=== PATIENT | female | born 1955 | race Two or more races ===

== ENCOUNTER → 2017-03-07 | Outpatient (CLI) | payer BC, OTHER ==
--- NOTE | 2017-03-07 13:24 | REP ---
THYROID ULTRASOUND: 03/07/2017. Clinical history: Nontoxic single thyroid nodule. Comparison: No prior pertinent studies. Findings: Sonographic evaluation of the thyroid show the right lobe 3.6 x 1.7 x 1.8 cm. The left lobe is 3.8 x 1 x 1.6 cm. The isthmus has a thickness of 2.2 mm. Thyroid lobes are generally homogeneous on the left and with two hypoechoic nodules in the right lobe, one laterally 8 x 7 x 5 mm and the other inferiorly 7 x 6 x 4 mm. No abnormal calcifications. I see no cyst or no contour abnormality or lobulations noted. No adjacent fluid collections or adenopathy. Impression: 1. Two small solid nodules of the right lobe, 8 x 7 and 7 x 6 mm, in the inferior aspect of the thyroid lobe with both lobes otherwise homogeneous and unremarkable. No thyromegaly. No cystic mass. Signed by Juan Rogers MD 03/07/2017 08:14 P
--- NOTE | 2017-03-08 14:36 | REP ---
Clinical: Right lower quadrant palpable mass. Technique: Real time starkey scale ultrasound examination using linear high frequency and curved array transducer. Findings: Directed ultrasound examination of the right lower quadrant overlying the area of "palpable mass" identifies normal subcutaneous soft tissue without fluid collection, or mass lesion. No obvious abnormalities identified. Impression: Normal directed ultrasound examination of the right lower quadrant without obvious mass lesion, fluid collection or abnormality. Signed by Wale Madsen MD 03/08/2017 02:51 A
== END ==
LOC: M RAD 10:14
PROVIDERS: ATTEND Internal Medicine
DX: E04.1 Nontoxic single thyroid nodule (principal); R19.00 Intra-abdominal and pelvic swelling, mass and lump, unspecified site

== ENCOUNTER → 2017-12-31 | Outpatient (CLI) | payer BC, OTHER ==
[2017-12-31 15:06] LABS: D-DIMER QUANT < 270.0 ng/ml (<500)
== END ==
LOC: M LAB 14:30
DX: R06.02 Shortness of breath (principal); D68.2 Hereditary deficiency of other clotting factors
CPT/HCPCS: 36415

== ENCOUNTER → 2018-01-09 | Outpatient (CLI) | payer BC, OTHER | LOC: M RAD 15:22 | DX: R91.8 Other nonspecific abnormal finding of lung field (principal); I70.0 Atherosclerosis of aorta; I25.10 Atherosclerotic heart disease of native coronary artery without angina pectoris | CPT/HCPCS: 71250 ==

== ENCOUNTER 2018-01-25 09:35 | Emergency (ER) | payer BC, OTHER ==
[2018-01-25] MEDS: ASPIRIN 81 MG CHEW TABLET PO (10:14)
[2018-01-25 10:15] LABS: BASO % 0.5 % (0.0-1.0); EOS # 0.1 10^3/uL (0.0-0.50); EOS % 1.8 % (0.0-3.0); HEMATOCRIT 40.2 % (36.0-47.0); HEMOGLOBIN 13.5 g/dl (12.0-15.5); IMMATURE GRANULOCYTE % 0.2 % (0-3.0); LYMPH # 1.2 10^3/uL (1.5-4.5); LYMPH % 18.6 % (24.0-44.0); MEAN CORPUSCULAR HEMOGLOBIN 31.2 pg (27.0-33.0); MEAN CORPUSCULAR HGB CONC 33.6 g/dl (32.0-36.5); MEAN CORPUSCULAR VOLUME 92.8 fl (80.0-96.0); MONO # 0.6 10^3/uL (0.0-0.8); MONO % 8.6 % (0.0-5.0); NEUTROPHILS # 4.6 10^3/uL (1.8-7.7); NEUTROPHILS % 70.3 % (36.0-66.0); PLATELET COUNT, AUTOMATED 228 10^3/uL (150-450); RED BLOOD COUNT 4.33 10^6/uL (4.00-5.40); RED CELL DISTRIBUTION WIDTH 12.1 % (11.5-14.5); WHITE BLOOD COUNT 6.5 10^3/uL (4.0-10.0)
[2018-01-25] MEDS: NITROGLYCERIN 0.4 MG SUBL TABLET SL ×3 (10:15→10:30)
[2018-01-25 10:29] LABS: PROTHROMBIN TIME 12.2 SECONDS (12.1-14.4)
[2018-01-25 10:56] LABS: ALKALINE PHOSPHATASE 124 U/L (45-117); ALT/SGPT 48 U/L (12-78); ANION GAP 4 MEQ/L (8-16); AST/SGOT 24 U/L (7-37); BILIRUBIN,DIRECT 0.1 MG/DL (0.0-0.2); BILIRUBIN,TOTAL 0.6 MG/DL (0.2-1.0); BLOOD UREA NITROGEN 14 MG/DL (7-18); CARBON DIOXIDE LEVEL 29 MEQ/L (21-32); CHLORIDE LEVEL 105 MEQ/L (98-107); CPK CREATINE PHOSPHOKINASE 119 U/L (26-192); CREATININE FOR GFR 0.78 MG/DL (0.55-1.30); GLOMERULAR FILTRATION RATE > 60.0 (>45); GLUCOSE, FASTING 93 MG/DL (70-100); LIPASE 163 U/L (73-393); MB/CK RELATIVE INDEX 2.18 (< OR =4); NT-PRO BNP 33 PG/ML (<125); POTASSIUM SERUM 4.3 MEQ/L (3.5-5.1); SODIUM LEVEL 138 MEQ/L (136-145); TOTAL PROTEIN 6.5 GM/DL (6.4-8.2); TROPONIN I < 0.02 NG/ML (< 0.10)
[2018-01-25] MEDS ORDERED: ISOVUE-370 76% 100ML VIAL (Q9967) As Ordered (11:45)
[2018-01-25 13:03] LABS: CPK CREATINE PHOSPHOKINASE 128 U/L (26-192); MB/CK RELATIVE INDEX 1.56 (< OR =4); TROPONIN I < 0.02 NG/ML (< 0.10)
== END 2018-01-25 13:52 | disposition home or self-care (01) ==
LOC: M ED 09:35
DX: R07.9 Chest pain, unspecified (principal); I10 Essential (primary) hypertension; E78.9 Disorder of lipoprotein metabolism, unspecified; R42 Dizziness and giddiness; D68.51 Activated protein C resistance; Z88.8 Allergy status to other drugs, medicaments and biological substances; Z82.49 Family history of ischemic heart disease and other diseases of the circulatory system; Z79.899 Other long term (current) drug therapy; Z79.51 Long term (current) use of inhaled steroids
CPT/HCPCS: Q9967

== ENCOUNTER → 2018-02-07 | Outpatient (REF) | payer OTHER ==
[2018-02-07 11:37] LABS: ALBUMIN 4.2 GM/DL (3.2-5.2); ALKALINE PHOSPHATASE 115 U/L (45-117); ALT/SGPT 50 U/L (12-78); ANION GAP 7 MEQ/L (8-16); AST/SGOT 25 U/L (7-37); BILIRUBIN,TOTAL 0.6 MG/DL (0.2-1.0); BLOOD UREA NITROGEN 13 MG/DL (7-18); CALCIUM LEVEL 8.8 MG/DL (8.8-10.2); CARBON DIOXIDE LEVEL 28 MEQ/L (21-32); CHLORIDE LEVEL 106 MEQ/L (98-107); CHOLESTEROL LEVEL 319 MG/DL (<200); CHOLESTEROL RISK RATIO 5.229 (<5); CREATININE FOR GFR 0.86 MG/DL (0.55-1.30); GLOMERULAR FILTRATION RATE > 60.0 (>45); GLUCOSE, FASTING 106 MG/DL (70-100); HDL CHOLESTEROL 61 MG/DL (>40); LDL CHOLESTEROL 227 MG/DL (<100); NON-HDL-C 258 MG/DL; SODIUM LEVEL 141 MEQ/L (136-145); TRIGLYCERIDES LEVEL 154 MG/DL (<150)
== END ==
LOC: M SFHCCLAY 08:16
DX: I10 Essential (primary) hypertension (principal); E78.2 Mixed hyperlipidemia

== ENCOUNTER → 2018-04-25 | Outpatient (REF) | payer OTHER ==
[~2018-04-25] MED LIST: ASPI81TA85 PO; LISI10TA4; PROAAER10; SYMB80INH INH; VENL75CA47
== END ==
LOC: M SFHCCLAY 16:06
PROVIDERS: ATTEND Nurse Practitioner Family
DX: N89.8 Other specified noninflammatory disorders of vagina (principal)

== ENCOUNTER → 2018-07-24 | Outpatient (CLI) | payer BC, OTHER ==
--- NOTE | 2018-07-25 01:09 | REP ---
Clinical: Trauma. Technique: AP, lateral, bilateral oblique and sunrise views right knee . Findings: Mild generalized age-related changes are appreciated. The osseous structures and joint spaces are intact and there is no evidence for acute fracture or dislocation. No joint effusion is appreciated. Surrounding soft tissues are unremarkable. No subcutaneous emphysema or radiodense foreign body. Impression: Essentially age-appropriate right knee examination. No acute fracture or dislocation. Electronically Signed by Wale Madsen MD 07/25/2018 01:01 A
== END ==
LOC: M WUC 10:56
PROVIDERS: ATTEND Physician Assistant
DX: M25.561 Pain in right knee (principal)

== ENCOUNTER → 2018-07-24 | Outpatient (REF) | payer OTHER | LOC: M LAB REF 10:54 | PROVIDERS: ATTEND Physician Assistant | DX: J02.9 Acute pharyngitis, unspecified (principal) ==

== ENCOUNTER 2024-03-14 07:05 | Observation (INO) | payer BC, MEDICARE ==
[~2024-03-14] VITALS: Ht 170.2 cm; Wt 105.8 kg
[~2024-03-14 07:05] MED LIST changes: -ASPI81TA85 PO; +ASPI81TA86 PO; +LISI10TA22 PO; -LISI10TA4
[2024-03-14 07:45] LABS: BASO % 0.2 % (0.0-1.0); EOS # 0.1 10^3/uL (0.0-0.5); HEMATOCRIT 41.5 % (36.0-47.0); HEMOGLOBIN 13.7 g/dl (12.0-15.5); LYMPH # 0.3 10^3/uL (1.5-5.0); LYMPH % 3.7 % (24.0-44.0); MEAN CORPUSCULAR HEMOGLOBIN 30.6 pg (27.0-33.0); MEAN CORPUSCULAR VOLUME 92.8 fl (80.0-96.0); MONO # 0.3 10^3/uL (0.0-0.8); MONO % 3.7 % (2.0-8.0); NEUTROPHILS % 91.2 % (36.0-66.0); PLATELET COUNT, AUTOMATED 184 10^3/uL (150-450); RED BLOOD COUNT 4.47 10^6/uL (4.00-5.40); WHITE BLOOD COUNT 8.8 10^3/uL (4.0-10.0)
[2024-03-14] MEDS: ONDANSETRON 4MG 2ML VIAL IV ONE ×2 (07:50→10:30)
[2024-03-14] MEDS ORDERED: ISOVUE-370 76% 100ML VIAL As Ordered ONE (07:50)
[2024-03-14] MEDS: MORPHINE 4 MG/ML 1ML VIAL IV PRN (07:56)
[2024-03-14 08:08] LABS: CK-MB VALUE MASS < 1.0 NG/ML (<3.6); LIPASE 35 U/L (12-53)
[2024-03-14 08:10] LABS: CPK CREATINE PHOSPHOKINASE 81 U/L (34-145); MB/CK RELATIVE INDEX 1.23 (< OR =4)
[2024-03-14 08:11] LABS: ALBUMIN 3.8 G/DL (3.2-5.2); ALKALINE PHOSPHATASE 152 U/L (35-104); ALT/SGPT 136 U/L (7.0-40); AST/SGOT 143 U/L (<34); BILIRUBIN,DIRECT 0.2 MG/DL (<0.4); BILIRUBIN,TOTAL 0.8 MG/DL (0.3-1.2); BLOOD UREA NITROGEN 14 MG/DL (9-23); CALCIUM LEVEL 8.8 MG/DL (8.3-10.6); CARBON DIOXIDE LEVEL 27 MMOL/L (20-31); CHLORIDE LEVEL 107 MMOL/L (98-107); CREATININE FOR GFR 0.78 MG/DL (0.55-1.30); GLOMERULAR FILTRATION RATE > 60.0 (>45); GLUCOSE, FASTING 121 MG/DL (74-106); POTASSIUM SERUM 4.1 MMOL/L (3.5-5.1); SODIUM LEVEL 142 MMOL/L (136-145); TOTAL PROTEIN 6.3 G/DL (5.7-8.2)
[2024-03-14 08:31] LABS: INR 0.93; PROTHROMBIN TIME 12.7 SECONDS (12.5-14.5)
[2024-03-14 08:59] LABS: CK-MB VALUE MASS < 1.0 NG/ML (<3.6)
[2024-03-14 09:00] LABS: CPK CREATINE PHOSPHOKINASE 73 U/L (34-145); MB/CK RELATIVE INDEX 1.36 (< OR =4)
[2024-03-14 10:16] LABS: CK-MB VALUE MASS < 1.0 NG/ML (<3.6)
[2024-03-14 10:17] LABS: CPK CREATINE PHOSPHOKINASE 80 U/L (34-145); MB/CK RELATIVE INDEX 1.25 (< OR =4)
[2024-03-14] MEDS: METOCLOPRAMIDE INJ 10MG/2ML VIAL IV ONE (11:26)
[2024-03-14] MEDS ORDERED: ALBUTEROL 90 MCG/ACT 8GM HFA INHALER INH PRN (14:45)
[2024-03-14] MEDS ORDERED: DICYCLOMINE 10 MG CAP PO PRN (14:45)
[2024-03-14] MEDS: NS (Normal Saline) 0.9% 1,000 ML IV SCH (15:08)
[2024-03-14] MEDS: SCOPOLAMINE 1MG TRANSDERMAL PATCH TOP SCH (15:08)
[2024-03-14] MEDS ORDERED: ALBU8.5H INH (15:35)
[2024-03-14] MEDS ORDERED: METO200T15 PO (15:35)
[2024-03-14] MEDS ORDERED: BUDE10.7 INH (15:35)
[2024-03-14] MEDS ORDERED: AMLO1TAB24 PO (15:35)
[2024-03-14] MEDS ORDERED: MONT10TA97 PO (15:35)
[2024-03-14] MEDS ORDERED: LEXA1TAB2 PO (15:35)
[2024-03-14] MEDS ORDERED: ASPI81TA26 PO (15:35)
[2024-03-14] MEDS ORDERED: FAMO1TAB11 PO (15:37)
[2024-03-14] MEDS ORDERED: CALC600T27 PO (15:37)
[2024-03-14] MEDS ORDERED: PANT40TA29 PO (15:37)
[2024-03-14] MEDS ORDERED: ATOR80TA59 PO (15:37)
[2024-03-14 16:00] VITALS: BP 144/65; TEMP 97.5; O2SAT 94
[2024-03-14] MEDS ORDERED: GABA-1172 PO (16:10)
[2024-03-14] MEDS ORDERED: HOME MED LIST COMPLETE! XX SCH (16:10)
[2024-03-14] MEDS: PANTOPRAZOLE 20 MG TAB PO SCH (17:57)
[2024-03-14] MEDS: ACETAMINOPHEN 325 MG TAB PO PRN (17:57)
[2024-03-14 18:00] VITALS: BP 121/59; TEMP 97.8; O2SAT 94
[2024-03-14 19:52] VITALS: BP 121/58; TEMP 99.1; O2SAT 91
[2024-03-15 04:03] VITALS: BP 123/61; TEMP 98.6; O2SAT 94
[2024-03-15 06:46] LABS: HEMATOCRIT 35.4 % (36.0-47.0); MEAN CORPUSCULAR HGB CONC 32.8 g/dl (32.0-36.5); MEAN CORPUSCULAR VOLUME 94.7 fl (80.0-96.0); PLATELET COUNT, AUTOMATED 141 10^3/uL (150-450); RED BLOOD COUNT 3.74 10^6/uL (4.00-5.40); WHITE BLOOD COUNT 2.9 10^3/uL (4.0-10.0)
[2024-03-15 06:51] LABS: ALBUMIN 2.8 G/DL (3.2-5.2); ALKALINE PHOSPHATASE 117 U/L (35-104); ALT/SGPT 82 U/L (7.0-40); AST/SGOT 41 U/L (<34); BILIRUBIN,TOTAL 0.6 MG/DL (0.3-1.2); BLOOD UREA NITROGEN 13 MG/DL (9-23); CALCIUM LEVEL 8.1 MG/DL (8.3-10.6); CARBON DIOXIDE LEVEL 26 MMOL/L (20-31); CHLORIDE LEVEL 106 MMOL/L (98-107); CREATININE FOR GFR 0.78 MG/DL (0.55-1.30); GLOMERULAR FILTRATION RATE > 60.0 (>45); GLUCOSE, FASTING 101 MG/DL (74-106); MAGNESIUM LEVEL 1.7 MG/DL (1.8-2.4); POTASSIUM SERUM 3.5 MMOL/L (3.5-5.1); SODIUM LEVEL 140 MMOL/L (136-145); TOTAL PROTEIN 5.2 G/DL (5.7-8.2)
[2024-03-15 06:57] LABS: HEMOGLOBIN 11.6 g/dl (12.0-15.5)
[2024-03-15 08:00] VITALS: BP 124/59; TEMP 98.6; O2SAT 91
[2024-03-15] MEDS: ASPIRIN 81MG ENTERIC TABLET PO SCH (08:53)
[2024-03-15 08:54] VITALS: BP 124/59
[2024-03-15] MEDS: MAG SULF 1GM/100ML (MAG RUN) 1 GM in IV 1 EA IV ONE (08:54)
[2024-03-15] MEDS: ENOXAPARIN 40MG/0.4ML SYRINGE (J1650 PER 10MG) SC SCH (08:54)
[2024-03-15 12:00] VITALS: BP 145/70; TEMP 98.2; O2SAT 94
== END 2024-03-15 16:00 | disposition home or self-care (01) ==
LOC: M ED 07:05 → EDBD 07:05 → M ED INP 14:34 → M MS5PR 15:45
PROVIDERS: ADMIT Internal Medicine; ATTEND Internal Medicine
DX: A08.39 Other viral enteritis (principal); I71.00 Dissection of unspecified site of aorta; I10 Essential (primary) hypertension; E78.5 Hyperlipidemia, unspecified; M81.0 Age-related osteoporosis without current pathological fracture; G47.33 Obstructive sleep apnea (adult) (pediatric); K21.9 Gastro-esophageal reflux disease without esophagitis; J45.909 Unspecified asthma, uncomplicated; F32.A Depression, unspecified; Z79.82 Long term (current) use of aspirin
CPT/HCPCS: 36415; 71045; 71275; 74177; 80047; 80048; 80053; 80076; 82550; 82553; 83690; 83735; 84484; 85025; 85027; 85610; 93005; 93041; 94760; 96361; 96372; 96374; 96375; 96376; 99285; G0378; J1650; J2405; J2765; J3475; Q9967

== ENCOUNTER → 2024-07-10 | Outpatient (CLI) | payer MEDICARE ==
[~2024-07-10] MED LIST changes: +ALBU8.5H INH; +AMLO1TAB24 PO; +ASPI81TA26 PO; +ATOR80TA59 PO; +BUDE10.7 INH; +CALC600T27 PO; +FAMO1TAB11 PO; +GABA-1172 PO; +LEXA1TAB2 PO; +METO200T15 PO; +MONT10TA97 PO; +PANT40TA29 PO
[2024-07-10 14:47] LABS: ALBUMIN 3.8 G/DL (3.2-5.2); BILIRUBIN,TOTAL 0.7 MG/DL (0.3-1.2); CALCIUM LEVEL 9.2 MG/DL (8.3-10.6); CHOLESTEROL RISK RATIO 5.59 (<5); CREATININE FOR GFR 0.85 MG/DL (0.55-1.30); FREE T4 1.05 NG/DL (0.89-1.76); GLOMERULAR FILTRATION RATE 74.1 (>45); HDL CHOLESTEROL 54.3 MG/DL (>40); LDL CHOLESTEROL 211.7 MG/DL (<100); NON-HDL-C 249.7 MG/DL; POTASSIUM SERUM 4.3 MMOL/L (3.5-5.1); THYROID STIMULATING HORMONE 2.316 uIU/ML (0.55-4.78); TOTAL PROTEIN 6.4 G/DL (5.7-8.2)
[2024-07-10 14:52] LABS: HEMATOCRIT 44.7 % (36.0-47.0); MEAN CORPUSCULAR HEMOGLOBIN 29.4 pg (27.0-33.0); MEAN CORPUSCULAR HGB CONC 31.3 g/dl (32.0-36.5); MEAN CORPUSCULAR VOLUME 93.9 fl (80.0-96.0); PLATELET COUNT, AUTOMATED 244 10^3/uL (150-450); RED BLOOD COUNT 4.76 10^6/uL (4.00-5.40); WHITE BLOOD COUNT 6.5 10^3/uL (4.0-10.0)
[2024-07-10 14:59] LABS: HEMOGLOBIN A1c 5.2 % (4.0-6.0)
== END ==
LOC: M PLALAB 11:45
DX: Z00.8 Encounter for other general examination (principal); J45.909 Unspecified asthma, uncomplicated; Z79.899 Other long term (current) drug therapy